=== PATIENT | female | born 1985 | race Caucasian/White ===

== ENCOUNTER 2025-06-03 04:07 | Inpatient (IN) | payer OTHER, SELFPAY ==
[2025-06-03] VITALS (45 sets, daily range): BP systolic 91–122; BP diastolic 65–94; PULSE 75–117; RESP 14–30; TEMP 36.4–36.9; O2SAT 92–100; BMI 33.3; BMI 34.3
--- NOTE | 2025-06-03 04:37 | CTR_ITS ---
PROCEDURE INFORMATION: Exam: CTA Abdomen and Pelvis With Contrast Exam date and time: 06/03/2025 5:53 AM Age: 39 years old Clinical indication: Other: Large volume bloody bms; Additional info: No pmhx, 4 large volume bloody bms here and worsening TECHNIQUE: Imaging protocol: Computed tomographic angiography of the abdomen and pelvis with contrast. Exam focused on the arteries. 3D rendering (Not supervised by radiologist): MIP and/or 3D reconstructed images were created by the technologist. Radiation optimization: All CT scans at this facility use at least one of these dose optimization techniques: automated exposure control; mA and/or kV adjustment per patient size (includes targeted exams where dose is matched to clinical indication); or iterative reconstruction. Contrast material: OMNI 350; Contrast volume: 100 ml; Contrast route: INTRAVENOUS (IV); COMPARISON: No relevant prior studies available. RADIATION DOSE METRICS: Total DLP (mGy-cm): 718.65 FINDINGS: Diaphragm: Small sliding-type hiatal hernia. Aorta: No aortic aneurysm. No aortic dissection. Celiac and mesenteric arteries: No occlusion or significant stenosis. Renal arteries: No occlusion or significant stenosis. Right iliac arteries: No occlusion or significant stenosis. Left iliac arteries: No occlusion or significant stenosis. Liver: The liver is enlarged, measuring 18.1 cm craniocaudal. Gallbladder and biliary ducts: Unremarkable. No calcified stones. No ductal dilation. Pancreas: Unremarkable. No mass. No ductal dilation. Spleen: Heterogeneous enhancement of the spleen is likely due to contrast timing. Spleen is normal in size. Adrenal glands: Unremarkable. No mass. Kidneys and ureters: Unremarkable. No solid mass. No hydronephrosis. Stomach and bowel: Moderate stool throughout the colon. No evidence of bowel obstruction. No active bleeding is evident within the gastrointestinal tract on this single phase of contrast. Appendix: No evidence of appendicitis. Intraperitoneal space: Unremarkable. No free air. No significant fluid collection. Lymph nodes: Unremarkable. No enlarged lymph nodes. Urinary bladder: Unremarkable. No mass. Reproductive: 3.3 cm left adnexal cyst. Bones/joints: No acute fracture. Soft tissues: Small fat containing umbilical hernia. CT/CT angio abdomen pelvis 16868 IMPRESSION: 1. No evidence of active bleeding within the gastrointestinal tract. A tagged red blood cell scan could be considered for further evaluation if warranted. 2. No acute findings in the abdomen/pelvis. 3. Moderate colonic stool can be seen with constipation. 4. Mild hepatomegaly. 5. 3.3 cm left adnexal cyst likely represents a dominant follicle.
[2025-06-03 04:47] LABS: Hematocrit 39.7 % (36-47); Hemoglobin 12.80 g/dL (11.27-16.99); Mean Corpuscular HGB Conc 32.2 g/dL (30-55); Mean Corpuscular Hemoglobin 27.4 pg (27-33); Mean Corpuscular Volume 85.0 fl (85-98); Nucleated Red Blood Cells % 0 %; Platelet Count 280 10^3/cmm (157-399); Red Blood Count 4.67 10^6/uL (3.85-5.65); White Blood Count 11.75 10^3/uL (3.29-11.43)
[2025-06-03 04:55] LABS: INR 0.89 (0.8-1.2); Partial Thromboplastin Time 28.6 SECONDS (23.9-36.7); Prothrombin Time 12.70 SECONDS (12.1-14.9)
--- NOTE | 2025-06-03 04:57 | W.ED.GIBLEED ---
Documented by User: Jalil Adams DO 06/04/25 02:48 HPI - GI Bleed General: Chief complaint: GI Bleed Stated complaint: Passing alot of blood BM Time Seen by Provider: 06/03/25 04:16 History of Present Illness: Patient is a 39-year-old female with past medical history of depression, GERD who presents to the ED with multiple episodes of large-volume diarrhea, reports 3 tonight, woke up abruptly with this, no seeming abdominal pain, rectal pain with this. She endorses a history of intermittent light amount of blood in the past but never like this. She has no history of IBD, no family history of this or autoimmune disease. She is not on blood thinners. No recent travel, no recent fevers or flulike symptoms. Does not drink alcohol regularly, no heavy ibuprofen usage. Had an episode of symptomatic gallstones 2 years ago and has not reoccurred since. She denies any hematuria or vaginal bleeding. No history of cirrhosis or PUD. Related Data Home Medications ?Medication ?Instructions ?Recorded ?Confirmed bupropion HCl 300 mg 24 hr tablet, 300 mg PO DAILY 06/03/25 06/03/25 extended release buspirone 5 mg tablet 5 mg PO TID PRN Anxiety 06/03/25 06/03/25 ixekizumab 80 mg/mL subcutaneous 80 mg SUBCUT .Q28D 06/03/25 06/03/25 auto-injector (Taltz Autoinjector) omeprazole 20 mg capsule,delayed 20 mg PO DAILY 06/03/25 06/03/25 release Allergies Allergy/AdvReac Type Severity Reaction Status Date / Time No Known Allergies Allergy Verified 06/03/25 04:19 Review of Systems General: Reports: 10 or more systems reviewed and unremarkable except in HPI and below GI: Reports: diarrhea and hematochezia Physical Exam Narrative: EXAM NARRATIVE: Patient overall well-appearing, afebrile, mildly tachycardic but normotensive, no acute distress. Abdomen mildly distended but soft, no reproducible tenderness, bowel sounds increased, no overlying skin changes, no CVA tenderness. Breathing comfortably on room air, saturating well, able to speak in full sentences without getting short of breath. Mild sinus tachycardia, normotensive, appears slightly pale, slightly delayed cap refill, 2+ pulses throughout. GCS 15, moving all 4 extremities symmetrically and spontaneously. Course Vital Signs: Vital signs: Vital Signs Temperature 97.5 F L 06/05/25 08:01 Pulse Rate 69 06/05/25 08:01 Respiratory Rate 22 H 06/05/25 08:01 Blood Pressure 114/69 06/05/25 08:01 Pulse Oximetry 96 06/05/25 08:01 Oxygen Delivery Me thod Room Air 06/04/25 18:04 MDM - GI Bleed Medical Decision Making -ddx: EHEC/other bacterial toxin, hemorrhoid, fissure, PUD, colon mass, dehydration, acute blood loss, IBD, coagulopathy - Patient with seemingly worsening large-volume bloody diarrhea, 2 episodes here, mildly pale and tachycardic, will get type and screen, prepared to give blood if needed, will start with fluids, Protonix, get CT angio upper abdomen to further elucidate for any acute intra-abdominal pathology, assess for coagulopathy and get other abdominal labs and reassess. - Patient had a few episodes of large-volume bloody diarrhea while in the ED, remained slightly tachycardic but with normal vitals, no changes in her mentation, patient was typed and screened, initial hemoglobin of 12, blood prepared if needed. At time of signout of care, we were awaiting CT angio of her abdomen pelvis for decision making on whether she would need an urgent versus emergent scope and potential ICU admission, signed out in stable condition to Dr. Randolph. Lab Data 06/05/25 03:37 06/05/25 03:37 Radiology Impressions Abdomen/Pelvis CTA 06/03/25 04:37 IMPRESSION: 1. No evidence of active bleeding within the gastrointestinal tract. A tagged red blood cell scan could be considered for further evaluation if warranted. 2. No acute findings in the abdomen/pelvis. 3. Moderate colonic stool can be seen with constipation. 4. Mild hepatomegaly. 5. 3.3 cm left adnexal cyst likely represents a dominant follicle. Laboratory Results WBC 13.93 10^3/uL (3.29-11.43) H 06/03/25 08:20 RBC 3.63 10^6/uL (3.85-5.65) L 06/03/25 08:20 Hgb 9.90 g/dL (11.27-16.99) L 06/03/25 08:20 Hct 31.3 % (36-47) L 06/03/25 08:20 MCV 86.2 fl (85-98) 06/03/25 08:20 MCH 27.3 pg (27-33) 06/03/25 08:20 MCHC 31.6 g/dL (30-55) 06/03/25 08:20 RDW 12.7 % (12.1-15.1) 06/03/25 08:20 Plt Count 231 10^3/cmm (157-399) 06/03/25 08:20 MPV 10.3 fL (7.4-10.4) 06/03/25 08:20 Neut % (Auto) 75.8 % 06/03/25 08:20 Lymph % (Auto) 16.9 % 06/03/25 08:20 Polk % (Auto) 5.1 % 06/03/25 08:20 Eos % (Auto) 1.2 % 06/03/25 08:20 Baso % (Auto) 0.5 % 06/03/25 08:20 Neut # (Auto) 10.55 10^3/uL (1.8-7.7) H 06/03/25 08:20 Lymph # (Auto) 2.4 10^3/uL (0.8-4.8) 06/03/25 08:20 Polk # (Auto) 0.7 10^3/uL (0.2-0.9) 06/03/25 08:20 Eos # (Auto) 0.2 10^3/uL (0.0-0.8) 06/03/25 08:20 Baso # (Auto) 0.1 10^3/uL (0.0-0.1) 06/03/25 08:20 Nucleated RBC % (auto) 0 % 06/03/25 08:20 Nucleated RBCs # 0.0 /100WBC 06/03/25 08:20 PT 12.70 SECONDS (12.1-14.9) 06/03/25 04:18 INR 0.89 (0.8-1.2) 06/03/25 04:18 APTT 28.6 SECONDS (23.9-36.7) 06/03/25 04:18 Sodium 137 mmol/L (136-145) 06/03/25 05:40 Potassium 4.0 mmol/L (3.5-5.1) 06/03/25 05:40 Chloride 105 mmol/L (98-107) 06/03/25 05:40 Carbon Dioxide 20 mmol/L (22-29) L 06/03/25 05:40 Anion Gap 16.0 (5-19) 06/03/25 05:40 BUN 10 mg/dL (6-20) 06/03/25 05:40 Creatinine 0.8 mg/dL (0.5-0.9) 06/03/25 05:40 GFR Calculation 79.4 mL/min (90-130) L 06/03/25 05:40 Glucose 109 mg/dL (65-115) 06/03/25 05:40 Calculated Osmolality 284 mOsm/kg (285-295) L 06/03/25 05:40 Lactic Acid 1.1 mmol/L (0.5-2.2) 06/03/25 04:18 Calcium 8.8 mg/dL (8.5-10.5) 06/03/25 05:40 Phosphorus 2.9 mg/dL (2.5-4.5) 06/03/25 04:18 Magnesium 2.1 mg/dL (1.7-2.3) 06/03/25 04:18 Total Bilirubin 0.3 mg/dL (0.15-1.2) 06/03/25 05:40 AST 16 U/L (0-32) 06/03/25 05:40 ALT 15 U/L (0-33) 06/03/25 05:40 Alkaline Phosphatase 67 U/L (35-105) 06/03/25 05:40 Troponin T Baseline < 6 ng/L (0-10) 06/03/25 04:18 Troponin T 60 Minute < 6.0 ng/L (0-10) 06/03/25 05:40 Delta Troponin T 0 ABS# (0-10) 06/03/25 05:40 C-React Prot High Sens 0.230 mg/dL (0.0-0.3) 06/03/25 04:18 Total Protein 6.4 g/dL (6.6-8.7) L 06/03/25 05:40 Albumin 4.0 g/dL (3.5-5.2) 06/03/25 05:40 Globulin 2.4 g/dL (1.3-4.6) 06/03/25 05:40 Lipase 38 U/L (13-60) 06/03/25 04:18 HCG, Qual Negative (Negative) 06/03/25 04:18 C. difficile (PCR) Negative (Negative) 06/03/25 04:31 Blood Type A Positive 06/03/25 04:18 Rho(D) Type Rh positive 06/03/25 04:18 Antibody Screen Negative 06/03/25 04:18 Crossmatch See Detail 06/03/25 04:18 XR interpretation done by ED provider, pending radiology final review ED provider radiology interpretation(s): No gross areas of extravasation on CT angio abdomen pelvis Discharge Plan Discharge Patient Disposition: Admitted As Inpatient Admit Provider: Eriberto Matt Clinical Impression: Lower GI bleed Condition: Stable Discharge Diet: Advance as tolerated Discharge Activity: Resume usual activity Sign Out Sign Out Data: Patient Sign Out occurred on 06/03/25 at 06:23. Patient's care was discussed, and care was transferred from Jalil Adams DO to Bart Randolph DO. Coding Level of Care Code ED Sheet Sorter for Chg Fwd Documented by User: Bart Randolph DO 06/05/25 09:55 HPI - GI Bleed General: Chief complaint: GI Bleed Stated complaint: Passing alot of blood BM Time Seen by Provider: 06/03/25 04:16 Related Data Home Medications ?Medication ?Instructions ?Recorded ?Confirmed bupropion HCl 300 mg 24 hr tablet, 300 mg PO DAILY 06/03/25 06/03/25 extended release buspirone 5 mg tablet 5 mg PO TID PRN Anxiety 06/03/25 06/03/25 ixekizumab 80 mg/mL subcutaneous 80 mg SUBCUT .Q28D 06/03/25 06/03/25 auto-injector (Taltz Autoinjector) omeprazole 20 mg capsule,delayed 20 mg PO DAILY 06/03/25 06/03/25 release Allergies Allergy/AdvReac Type Severity Reaction Status Date / Time No Known Allergies Allergy Verified 06/03/25 04:19 Course Vital Signs: Vital signs: Vital Signs Temperature 97.5 F L 06/05/25 08:01 Pulse Rate 69 06/05/25 08:01 Respiratory Rate 22 H 06/05/25 08:01 Blood Pressure 114/69 06/05/25 08:01 Pulse Oximetry 96 06/05/25 08:01 Oxygen Delivery Me thod Room Air 06/04/25 18:04 MDM - GI Bleed Medical Decision Making -ddx: EHEC/other bacterial toxin, hemorrhoid, fissure, PUD, colon mass, dehydration, acute blood loss, IBD, coagulopathy - Patient with seemingly worsening large-volume bloody diarrhea, 2 episodes here, mildly pale and tachycardic, will get type and screen, prepared to give blood if needed, will start with fluids, Protonix, get CT angio upper abdomen to further elucidate for any acute intra-abdominal pathology, assess for coagulopathy and get other abdominal labs and reassess. - Patient had a few episodes of large-volume bloody diarrhea while in the ED, remained slightly tachycardic but with normal vitals, no changes in her mentation, patient was typed and screened, initial hemoglobin of 12, blood prepared if needed. At time of signout of care, we were awaiting CT angio of her abdomen pelvis for decision making on whether she would need an urgent versus emergent scope and potential ICU admission, signed out in stable condition to Dr. Randolph. Care assumed at change of shift. Medical decision making Social determinants: None I reviewed the patient's medical record. I reviewed the patient's current home meds. Alternate historians: None Differential diagnosis: Infectious diarrhea, diverticulitis, lower GI bleed Lab Review: Labs reviewed as found in the chart. Initial CBC with a hemoglobin of 12.8 done at 4:18 AM at 8:20 AM I repeated her hemoglobin it was 9.9 to the point patient had had at least 2 more large bloody bowel movements. Chemistries unremarkable BUN not elevated no significant anion gap. C. difficile is negative liver functions normal. Imaging: CT abdomen does not show any acute abdominal findings no sign of source of bleed no infection no obstruction no masses no diverticulitis no perforation Assessment of risk Level of risk: High Hospitalization considerations: Hospitalized for acute lower GI bleed ongoing Reexamination: Repeat exam patient remains feeling weak she reports having several more large bloody bowel movements repeat hemoglobin shows significant drop Assessment and plan: Discussed with hospitalist and with general surgery will admit for acute lower GI bleed. Patient be kept n.p.o. Repeat hemoglobin shows a 3 point drop will need to serial hemoglobins. Will admit to ICU. Lab Data 06/05/25 03:37 06/05/25 03:37 Radiology Impressions Abdomen/Pelvis CTA 06/03/25 04:37 IMPRESSION: 1. No evidence of active bleeding within the gastrointestinal tract. A tagged red blood cell scan could be considered for further evaluation if warranted. 2. No acute findings in the abdomen/pelvis. 3. Moderate colonic stool can be seen with constipation. 4. Mild hepatomegaly. 5. 3.3 cm left adnexal cyst likely represents a dominant follicle. Laboratory Results WBC 13.93 10^3/uL (3.29-11.43) H 06/03/25 08:20 RBC 3.63 10^6/uL (3.85-5.65) L 06/03/25 08:20 Hgb 9.90 g/dL (11.27-16.99) L 06/03/25 08:20 Hct 31.3 % (36-47) L 06/03/25 08:20 MCV 86.2 fl (85-98) 06/03/25 08:20 MCH 27.3 pg (27-33) 06/03/25 08:20 MCHC 31.6 g/dL (30-55) 06/03/25 08:20 RDW 12.7 % (12.1-15.1) 06/03/25 08:20 Plt Count 231 10^3/cmm (157-399) 06/03/25 08:20 MPV 10.3 fL (7.4-10.4) 06/03/25 08:20 Neut % (Auto) 75.8 % 06/03/25 08:20 Lymph % (Auto) 16.9 % 06/03/25 08:20 Polk % (Auto) 5.1 % 06/03/25 08:20 Eos % (Auto) 1.2 % 06/03/25 08:20 Baso % (Auto) 0.5 % 06/03/25 08:20 Neut # (Auto) 10.55 10^3/uL (1.8-7.7) H 06/03/25 08:20 Lymph # (Auto) 2.4 10^3/uL (0.8-4.8) 06/03/25 08:20 Polk # (Auto) 0.7 10^3/uL (0.2-0.9) 06/03/25 08:20 Eos # (Auto) 0.2 10^3/uL (0.0-0.8) 06/03/25 08:20 Baso # (Auto) 0.1 10^3/uL (0.0-0.1) 06/03/25 08:20 Nucleated RBC % (auto) 0 % 06/03/25 08:20 Nucleated RBCs # 0.0 /100WBC 06/03/25 08:20 PT 12.70 SECONDS (12.1-14.9) 06/03/25 04:18 INR 0.89 (0.8-1.2) 06/03/25 04:18 APTT 28.6 SECONDS (23.9-36.7) 06/03/25 04:18 Sodium 137 mmol/L (136-145) 06/03/25 05:40 Potassium 4.0 mmol/L (3.5-5.1) 06/03/25 05:40 Chloride 105 mmol/L (98-107) 06/03/25 05:40 Carbon Dioxide 20 mmol/L (22-29) L 06/03/25 05:40 Anion Gap 16.0 (5-19) 06/03/25 05:40 BUN 10 mg/dL (6-20) 06/03/25 05:40 Creatinine 0.8 mg/dL (0.5-0.9) 06/03/25 05:40 GFR Calculation 79.4 mL/min (90-130) L 06/03/25 05:40 Glucose 109 mg/dL (65-115) 06/03/25 05:40 Calculated Osmolality 284 mOsm/kg (285-295) L 06/03/25 05:40 Lactic Acid 1.1 mmol/L (0.5-2.2) 06/03/25 04:18 Calcium 8.8 mg/dL (8.5-10.5) 06/03/25 05:40 Phosphorus 2.9 mg/dL (2.5-4.5) 06/03/25 04:18 Magnesium 2.1 mg/dL (1.7-2.3) 06/03/25 04:18 Total Bilirubin 0.3 mg/dL (0.15-1.2) 06/03/25 05:40 AST 16 U/L (0-32) 06/03/25 05:40 ALT 15 U/L (0-33) 06/03/25 05:40 Alkaline Phosphatase 67 U/L (35-105) 06/03/25 05:40 Troponin T Baseline < 6 ng/L (0-10) 06/03/25 04:18 Troponin T 60 Minute < 6.0 ng/L (0-10) 06/03/25 05:40 Delta Troponin T 0 ABS# (0-10) 06/03/25 05:40 C-React Prot High Sens 0.230 mg/dL (0.0-0.3) 06/03/25 04:18 Total Protein 6.4 g/dL (6.6-8.7) L 06/03/25 05:40 Albumin 4.0 g/dL (3.5-5.2) 06/03/25 05:40 Globulin 2.4 g/dL (1.3-4.6) 06/03/25 05:40 Lipase 38 U/L (13-60) 06/03/25 04:18 HCG, Qual Negative (Negative) 06/03/25 04:18 C. difficile (PCR) Negative (Negative) 06/03/25 04:31 Blood Type A Positive 06/03/25 04:18 Rho(D) Type Rh positive 06/03/25 04:18 Antibody Screen Negative 06/03/25 04:18 Crossmatch See Detail 06/03/25 04:18 Discharge Plan Discharge Patient Disposition: Admitted As Inpatient Admit Provider: Eriberto Matt Clinical Impression: Lower GI bleed Condition: Stable Discharge Diet: Advance as tolerated Discharge Activity: Resume usual activity Sign Out Sign Out Data: Patient Sign Out occurred on 06/03/25 at 06:23. Patient's care was discussed, and care was transferred from Jalil Adams DO to Bart Randolph DO. Coding Level of Care Code ED Sheet Sorter for King Weber
[2025-06-03 04:59] LABS: Troponin(5th) Baseline < 6 ng/L (0-10)
--- NOTE | 2025-06-03 05:01 | ECG_ITS ---
[facility] Test Date: 2025-06-03 Pat Name: Joanna Banks Department: Room: Gender: Female Vp Platforms: : 1985 Requested By: Jalil Adams Order Number: [id number] Jaky MD: PETER LUDWIG Measurements Intervals [place] Rate: 88 P: 76 TN: 159 QRS: 72 QRSD: 86 T: 75 QT: 325 QTc: 394 Interpretive Statements SINUS RHYTHM No previous ECG available for comparison Electronically Signed On 06-09-2025 20:31:51 [employer] OPERATOR by PETER LUDWIG [email or web address]
[2025-06-03 05:02] LABS: CRP High Sensitivity Cardiac 0.230 mg/dL (0.0-0.3); Lactic Sepsis W/Reflex 1.1 mmol/L (0.5-2.2); Lipase 38 U/L (13-60); Magnesium 2.1 mg/dL (1.7-2.3)
[2025-06-03 05:14] LABS: HCG, Serum Qual Negative (Negative)
[2025-06-03] MEDS: pantoprazole 40 mg SDV IVP ×3 (05:47→22:46)
[2025-06-03 06:07] LABS: C.Diff PCR (Lab) NEGATIVE (Negative)
[2025-06-03] MEDS: iohexol 350 mg/mL 500 mL Btl (per mL) IV (06:07)
[2025-06-03] MEDS: pantoprazole 40 mg SDV 80 MG IVP (07:35)
[2025-06-03 07:53] LABS: Alanine Aminotransferase 15 U/L (0-33); Albumin Level 4.0 g/dL (3.5-5.2); Alkaline Phosphatase 67 U/L (35-105); Anion Gap 16.0 (5-19); Aspartate Amino Transferase 16 U/L (0-32); Blood Urea Nitrogen 10 mg/dL (6-20); Calcium 8.8 mg/dL (8.5-10.5); Carbon Dioxide 20 mmol/L (22-29); Chloride 105 mmol/L (98-107); Globulin 2.4 g/dL (1.3-4.6); Glucose 109 mg/dL (65-115); Osmolality Calculated 284 mOsm/kg (285-295); Potassium 4.0 mmol/L (3.5-5.1); Sodium 137 mmol/L (136-145); Total Protein 6.4 g/dL (6.6-8.7)
--- NOTE | 2025-06-03 08:03 | PC.PHAR ---
Pt wants to take her morning meds.
[2025-06-03 08:23] LABS: Hematocrit 31.3 % (36-47); Hemoglobin 9.90 g/dL (11.27-16.99); Mean Corpuscular HGB Conc 31.6 g/dL (30-55); Mean Corpuscular Hemoglobin 27.3 pg (27-33); Mean Corpuscular Volume 86.2 fl (85-98); Nucleated Red Blood Cells % 0 %; Platelet Count 231 10^3/cmm (157-399); Red Blood Count 3.63 10^6/uL (3.85-5.65); White Blood Count 13.93 10^3/uL (3.29-11.43)
[2025-06-03] MEDS: D5-NS 0.45% + KCL 20 mEq 20 MEQ/1,000 ML BAG 100 MEQ IV (10:40)
--- NOTE | 2025-06-03 11:01 | PM.CONSULT ---
Providers/Reason For Consult Consulting Physician/Specialty*: Dr. Baptiste general surgery Reason for Consult*: Hematochezia Attending Physician: Ericka Lorenzana MD Primary Care Provider: REA Madrigal History of Present Illness History of Present Illness Joanna Banks is a 39 year old female whom surgery was consulted for hematochezia. No family history of colon cancer or inflammatory bowel disease. No weight loss. No changes in bowel habits. Medications/Allergies Home Medications ?Medication ?Instructions ?Recorded ?Confirmed ?Last Taken ?Type bupropion HCl 300 mg 24 hr tablet, 300 mg PO DAILY 06/03/25 06/03/25 06/02/25 History extended release buspirone 5 mg tablet 5 mg PO TID PRN Anxiety 06/03/25 06/03/25 Unknown History ixekizumab 80 mg/mL subcutaneous 80 mg SUBCUT .Q28D 06/03/25 06/03/25 05/06/25 History auto-injector (Taltz Autoinjector) omeprazole 20 mg capsule,delayed 20 mg PO DAILY 06/03/25 06/03/25 06/02/25 History release Allergies Allergy/AdvReac Type Severity Reaction Status Date / Time No Known Allergies Allergy Verified 06/03/25 04:19 Current Medications Generic Name Dose Route Start Last Admin Trade Name Freq PRN Reason Stop Dose Admin Potassium Chloride/Dextrose/Sod Cl 20 meq in 1,000 mls @ 100 mls/hr 06/03/25 10:23 06/03/25 10:40 D5-Ns 0.45% + Kcl 20 Meq IV 100 mls/hr .Q10H FRANCA Administration PFSH Acute Female Reproductive History: Date of last menstrual period: 05/15/25 Vitals/I&O/Wt Last Vital Signs Temp 97.5 F L 06/03/25 04:12 Pulse 117 H 06/03/25 07:30 Resp 15 06/03/25 06:54 BP 110/71 06/03/25 06:54 Pulse Ox 100 06/03/25 07:30 O2 Del Method Room Air 06/03/25 10:32 06/02/25 06/03/25 06/03/25 22:59 06:59 14:59 Intake Total 1000 / 1000 Balance 1000 / 1000 Weight last 48 hrs Weight 206 lb 4 oz Weight 200 lb Physical Exam Narrative: Chest: Unlabored breathing room air. No lymphadenopathy. Heart: Regular rate and rhythm. Abdomen: Soft, nontender, nondistended. No masses or lymphadenopathy. Data 06/05/25 03:37 06/05/25 03:37 A&P Assessment and plan 1. Lower GI bleed: Plan: 39-year-old female who presented with hematochezia. Patient agrees to proceed with diagnostic colonoscopy. Prep ordered. PDMP PDMP Reviewed: Not Reviewed Coding Level of Care Code 43940 Diagnoses Lower GI bleed K92.2
[2025-06-03] MEDS: magnesium citrate Btl 296 mL PO ×2 (12:01→21:30)
[2025-06-03 12:13] LABS: Hematocrit 30.9 % (36-47); Hemoglobin 9.70 g/dL (11.27-16.99); Mean Corpuscular HGB Conc 31.4 g/dL (30-55); Mean Corpuscular Hemoglobin 27.5 pg (27-33); Mean Corpuscular Volume 87.5 fl (85-98); Nucleated Red Blood Cells % 0 %; Platelet Count 251 10^3/cmm (157-399); Red Blood Count 3.53 10^6/uL (3.85-5.65); White Blood Count 10.35 10^3/uL (3.29-11.43)
[2025-06-03 12:35] LABS: Magnesium 1.9 mg/dL (1.7-2.3)
[2025-06-03] MEDS: alum-mag-hydroxide-sime 30 mL UDC 15 ML PO ×2 (13:52→20:59)
[2025-06-03] MEDS: metroNIDAZOLE IV 500 MG/100 ML PREMIX 100 MG IV ×2 (14:18→21:40)
[2025-06-03] MEDS: ondansetron 2 mg/ML SDV 2 mL 4 MG IVP ×2 (14:21→22:47)
--- NOTE | 2025-06-03 17:48 | PM.HP ---
Providers/Chief Complaint Admitting Physician: Ericka Lorenzana MD Primary Care Provider: REA Madrigal Chief Complaint: Passing alot of blood BM History of Present Illness As per the previous retrospective note and the patient: Joanna Banks is a 39 year old female with past medical history of depression, GERD presented to ER with large volume bright red blood per rectum from 1 day. The patient did not report any previous history of such episodes. There was no melena and only fresh blood. No abdominal pain, nausea or vomiting or any easy bruising or any other sitophobia source of bleeding. The patient does not drink alcohol. No history of any fevers chills or weight loss. No history of cancers. No previous history of IBD in the family or diagnosed in her situation and autoimmune disorders. She did not report any NSAIDs or steroids abuse or use. No other substance use disorder. The patient is non-smoker. Rest of the review of system unremarkable Review of Systems General: Reports: 10 or more systems reviewed and unremarkable except in HPI and below Medications/Allergies Home Medications ?Medication ?Instructions ?Recorded ?Confirmed ?Last Taken ?Type bupropion HCl 300 mg 24 hr tablet, 300 mg PO DAILY 06/03/25 06/03/25 06/02/25 History extended release buspirone 5 mg tablet 5 mg PO TID PRN Anxiety 06/03/25 06/03/25 Unknown History ixekizumab 80 mg/mL subcutaneous 80 mg SUBCUT .Q28D 06/03/25 06/03/25 05/06/25 History auto-injector (Taltz Autoinjector) omeprazole 20 mg capsule,delayed 20 mg PO DAILY 06/03/25 06/03/25 06/02/25 History release Allergies Allergy/AdvReac Type Severity Reaction Status Date / Time No Known Allergies Allergy Verified 06/03/25 04:19 PFSH Acute Female Reproductive History: Date of last menstrual period: 05/15/25 Vitals/I&O/Wt Last Vital Signs Temp 98.0 F 06/03/25 11:45 Pulse 95 06/03/25 12:00 Resp 18 06/03/25 12:00 BP 105/78 06/03/25 11:45 Pulse Ox 97 06/03/25 12:00 O2 Del Method Room Air 06/03/25 11:45 06/03/25 06/03/25 06/03/25 06:59 14:59 22:59 Intake Total 1000 / 1000 Balance 1000 / 1000 Weight last 48 hrs Weight 93.553 kg Weight 90.718 kg Physical Exam Narrative: General: Alert and oriented, lying comfortably without any distress HEENT: Normocephalic, atraumatic, grossly unremarkable exam Cardio: normal rate rhythm, normal S1-S2 without any murmurs, rubs, or gallops and JVD normal Respiratory: normal vascular breathing on auscultation without any wheezes, stridor, rhonchi GI: Abdomen soft, nontender, nondistended, normoactive bowel sounds present all 4 quadrants, Neuro: intact cranial nerves motor and sensory and cerebellar/coordination function without any focal neurological deficit Behavior: Appropriate and cooperative Extremities: Adequate palpable pulses, no edema or cyanosis observed Skin: grossly unremarkable exam Data 06/03/25 12:01 06/03/25 05:40 Micro: Microbiology 06/03/25 12:01 Blood Culture - Preliminary Blood SPECIMEN COLLECTED 06/03/25 11:54 Blood Culture - Preliminary Blood SPECIMEN COLLECTED A&P Assessment and plan 1. Lower GI bleed: Patient underwent CT abdomen pelvis and did not show any evidence of active bleeding, for detailed report refer to the imaging studies Surgery on board and tomorrow for colonoscopy, today for clear fluids and n.p.o. after midnight, Maintain 2 IV over cannula CBC every 8 hourly Monitoring daily labs, electrolytes and correction accordingly PPI IV twice daily Adequate hydration Hemoglobin to maintain above 7 Avoid any NSAIDs or blood thinners There might be suspected diverticulitis since the patient reported having constipation and history of hemorrhoids. Therefore considering possible diverticulitis to start on metronidazole and ciprofloxacin Maintain MAP over 65 Monitor vitals 2. Depression: Reconcile home medication and to continue on bupropion 300 mg daily and buspirone 5 mg 3 times daily as needed for anxiety Continue to monitor 3. GERD (gastroesophageal reflux disease): PPI twice daily Maalox Carafate Plan: Patient kept in ICU for monitoring of hemoglobin and hemodynamics considering patient has a risk of further deterioration if massive bleeding episode happens VTE: SCDs and early ambulation PDMP PDMP Reviewed: Not Reviewed Attestations Medical Necessity Statement*: Patient will stay more than 2 midnights for the management of lower GI bleed requiring colonoscopy and further diagnostic workup and stabilization for safe disposition Time Spent in Patient Care: 16 - 35 minutes (>than 50% of time spent in counselling and/or direct pt care on unit). Critical Care Time: The high probability of a clinically significant, sudden or life threatening deterioration, as referenced in this documentation, required my full and direct attention, intervention and personal management. The critical care time shown is in addition to time spent performing any reported separately billable procedures and includes the following: [x] Data and vital sign review and interpretation [x] Patient assessment, examination and intervention [x] Medication orders and management [x] Patient/Family updates as able [x] Care Coordination and Documentation. Critical Care Time (min): 35 Other Attestations: Patient condition has been discussed at length with the patient/family, I have independently reviewed the chart labs imaging/diagnostics/EKG. the goals of care and code status with the patient/family/NOK/legal rental sales representative, and documented accordingly. I have reconciled the medications after confirmation/comorbidities/current clinical condition. The management has been done according to the current clinical condition with respect to patient goals of care and based on recommendations/guidelines. The patient/family has been informed about the current condition and further plan of care. Agreed with the plan of care and understood without any language barrier. Every effort was made to ensure accuracy of administrative assistant receptionist. Any obvious errors or omissions should be clarified with the author of the document. Coding Level of Care Code Critical Care >/= 30 minutes Diagnoses Lower GI bleed K92.2 Depression F32.A GERD (gastroesophageal reflux disease) K21.9
[2025-06-03 19:18] LABS: Hematocrit 30.2 % (36-47); Hemoglobin 9.60 g/dL (11.27-16.99); Mean Corpuscular HGB Conc 31.8 g/dL (30-55); Mean Corpuscular Hemoglobin 27.4 pg (27-33); Mean Corpuscular Volume 86.3 fl (85-98); Nucleated Red Blood Cells % 0 %; Platelet Count 232 10^3/cmm (157-399); Red Blood Count 3.50 10^6/uL (3.85-5.65); White Blood Count 11.24 10^3/uL (3.29-11.43)
[2025-06-04] VITALS (30 sets, daily range): BP systolic 93–127; BP diastolic 45–96; PULSE 73–92; RESP 13–32; TEMP 36.6–37.1; O2SAT 92–100
[2025-06-04] MEDS: ondansetron 2 mg/ML SDV 2 mL 4 MG IVP (04:02)
[2025-06-04 04:19] LABS: Alanine Aminotransferase 13 U/L (0-33); Albumin Level 3.7 g/dL (3.5-5.2); Alkaline Phosphatase 59 U/L (35-105); Anion Gap 13.6 (5-19); Aspartate Amino Transferase 15 U/L (0-32); Blood Urea Nitrogen 4 mg/dL (6-20); Calcium 8.6 mg/dL (8.5-10.5); Carbon Dioxide 23 mmol/L (22-29); Chloride 104 mmol/L (98-107); Globulin 2.0 g/dL (1.3-4.6); Glucose 113 mg/dL (65-115); Osmolality Calculated 282 mOsm/kg (285-295); Potassium 3.6 mmol/L (3.5-5.1); Sodium 137 mmol/L (136-145); Total Protein 5.7 g/dL (6.6-8.7)
[2025-06-04] MEDS: alum-mag-hydroxide-sime 30 mL UDC 15 ML PO ×3 (05:13→21:59)
[2025-06-04] MEDS: metroNIDAZOLE IV 500 MG/100 ML PREMIX 100 MG IV ×2 (06:20→13:56)
--- NOTE | 2025-06-04 06:49 | ANES.PREANE2 ---
Pre-Anesthetic Assessment Height/Weight: Height 5 ft 5 in Weight 207 lb 3.752 oz Temp Pulse Resp BP Pulse Ox O2 Del Method 98.4 F 75 23 H 107/61 95 Room Air 06/04/25 00:45 06/04/25 06:00 06/04/25 05:00 06/04/25 06:00 06/04/25 06:00 06/03/25 17:15 Preop Diagnosis: GI bleed Operation Date: 06/04/25 07:00 Proposed Procedures p Colonoscopy(Not Applicable) - Enrrique Baptiste MD Was Beta Daniele taken within 24 hours: N/A Was Clonidine taken within 24 hours: N/A Social Tobacco and No alcohol Exam alert, oriented x 3, clear to auscultation bilaterally and regular rate & rhythm Airway Submandibular: within normal limits Cervical ROM: within normal limits Mallampati: Class II Dentition: full Anesthetic Plan ASA status: 3 Anesthesia: MAC Other: Patient initially admitted 06/03/2025 with concerns of active lower GI bleed No prior issues with anesthesia Completed bowel prep Labs reviewed from last night, hemoglobin 9.6 Plan for MAC anesthesia Medications/Allergies Home Medications ?Medication ?Instructions ?Recorded ?Confirmed ?Last Taken ?Type bupropion HCl 300 mg 24 hr tablet, 300 mg PO DAILY 06/03/25 06/03/25 06/02/25 History extended release buspirone 5 mg tablet 5 mg PO TID PRN Anxiety 06/03/25 06/03/25 Unknown History ixekizumab 80 mg/mL subcutaneous 80 mg SUBCUT .Q28D 06/03/25 06/03/25 05/06/25 History auto-injector (Taltz Autoinjector) omeprazole 20 mg capsule,delayed 20 mg PO DAILY 06/03/25 06/03/25 06/02/25 History release Allergies Allergy/AdvReac Type Severity Reaction Status Date / Time No Known Allergies Allergy Verified 06/03/25 04:19 Current Medications Generic Name Dose Route Start Last Admin Trade Name Freq PRN Reason Stop Dose Admin Acetaminophen 650 mg 06/03/25 11:33 06/03/25 21:33 Acetaminophen 325 Mg Tablet PO 650 mg Q6H PRN Administration MILD PAIN Al Hydrox/Mg Hydrox/Simethicone 15 ml 06/03/25 13:45 06/04/25 05:13 Lsvj-Ryo-Qmwgzxbuu-Sadi 30 Ml Udc PO 15 ml Q8H FRANCA Administration Bupropion HCl 300 mg 06/04/25 05:00 06/04/25 04:01 Bupropion Xl (24 Hr) 300 Mg Tablet PO 300 mg DAILY FRANCA Administration Metronidazole 500 mg in 100 mls @ 100 mls/hr 06/03/25 14:15 06/04/25 06:20 Flagyl Iv IV 100 mls/hr Q8H FRANCA Administration Protocol Ciprofloxacin/Dextrose 400 mg in 200 mls @ 200 mls/hr 06/03/25 14:15 06/04/25 04:01 Cipro IV Infused Q12H FRANCA Infusion Protocol Lactated Ringer's 1,000 mls @ 150 mls/hr 06/03/25 19:30 06/04/25 05:14 Lactated Ringers IV 150 mls/hr .Q6H40M FRANCA Administration Ondansetron HCl 4 mg 06/03/25 11:33 06/04/25 04:02 Ondansetron 2 Mg/Ml Sdv 2 Ml IVP 4 mg Q6H PRN Administration NAUSEA AND VOMITING Pantoprazole Sodium 40 mg 06/03/25 11:45 06/03/25 22:46 Pantoprazole 40 Mg Sdv IVP 40 mg Q12H FRANCA Administration Sucralfate 1 gm 06/03/25 13:45 06/04/25 05:13 Sucralfate 1 Gm Tablet PO 1 gm Q4H FRANCA Administration PFSH Anesthesia Female Reproductive History Date of last menstrual period: 05/15/25 Data Anesthesia 06/03/25 19:08 06/04/25 03:49 Short CBC 06/03/25 06/03/25 06/03/25 Range/Units 04:18 08:20 12:01 WBC 11.75 H 13.93 H 10.35 (3.29-11.43) 10^3/uL Hgb 12.80 9.90 L 9.70 L (11.27-16.99) g/dL Hct 39.7 31.3 L 30.9 L (36-47) % MCV 85.0 86.2 87.5 (85-98) fl Plt Count 280 231 251 (157-399) 10^3/cmm Neut % (Auto) 50.0 75.8 64.1 % Neut # (Auto) 5.87 10.55 H 6.63 (1.8-7.7) 10^3/uL 06/03/25 Range/Units 19:08 WBC 11.24 (3.29-11.43) 10^3/uL Hgb 9.60 L (11.27-16.99) g/dL Hct 30.2 L (36-47) % MCV 86.3 (85-98) fl Plt Count 232 (157-399) 10^3/cmm Neut % (Auto) 60.7 % Neut # (Auto) 6.81 (1.8-7.7) 10^3/uL BMP 06/03/25 06/04/25 05:40 03:49 Sodium 137 137 Potassium 4.0 3.6 Chloride 105 104 Carbon Dioxide 20 L 23 BUN 10 4 L Creatinine 0.8 0.8 Glucose 109 113 Calcium 8.8 8.6 Cardiac Enzymes 06/03/25 06/03/25 Range/Units 04:18 05:40 Troponin T Baseline < 6 (0-10) ng/L Delta Troponin T 0 (0-10) ABS# Liver Function 06/03/25 06/04/25 Range/Units 05:40 03:49 Total Bilirubin 0.3 0.3 (0.15-1.2) mg/dL AST 16 15 (0-32) U/L ALT 15 13 (0-33) U/L Alkaline Phosphatase 67 59 (35-105) U/L Albumin 4.0 3.7 (3.5-5.2) g/dL Blood Bank 06/03/25 04:18 Blood Type A Positive Rho(D) Type Rh positive Antibody Screen Negative Coags 06/03/25 04:18 PT 12.70 INR 0.89 APTT 28.6 C-React Prot High Sens 0.230 Microbiology 06/03/25 12:01 Blood Culture - Preliminary Blood SPECIMEN COLLECTED 06/03/25 11:54 Blood Culture - Preliminary Blood SPECIMEN COLLECTED
--- NOTE | 2025-06-04 07:05 | P.PN_ITS ---
Subjective 2 Subjective: NAEON Vitals/I&O/Wt Last Vital Signs Temp 98.4 F 06/04/25 00:45 Pulse 75 06/04/25 06:00 Resp 23 H 06/04/25 05:00 BP 107/61 06/04/25 06:00 Pulse Ox 95 06/04/25 06:00 O2 Del Method Room Air 06/03/25 17:15 06/03/25 06/04/25 06/04/25 22:59 06:59 14:59 Intake Total 1540 / 1540 1540 / 3080 Balance 1540 / 1540 1540 / 3080 Weight last 48 hrs Weight 207 lb 3.752 oz Weight 207 lb 3.752 oz Weight 206 lb 4 oz Weight 200 lb Physical Exam 2 Narrative: rrr unlabored breathing ra abdomen soft, nt, nd Data 06/03/25 19:08 06/04/25 03:49 Micro: Microbiology 06/03/25 12:01 Blood Culture - Preliminary Blood SPECIMEN COLLECTED 06/03/25 11:54 Blood Culture - Preliminary Blood SPECIMEN COLLECTED A&P Assessment and plan 1. Lower GI bleed: Plan: 39yo female with hematochezia. Discussed risks and benefits and patient agrees to proceed with diagnostic colonoscopy only. She understands the risks include aspiration pneumonia, iatrogenic perforation, and missing findings and decides to proceed. No strong indication for EGD therefore will defer. PDMP PDMP Reviewed: Not Reviewed Attestations 2 Medical Necessity Statement*: NA Coding Level of Care Code 47676 Diagnoses Lower GI bleed K92.2
--- NOTE | 2025-06-04 07:45 | ANE.PACU2 ---
Inpatient post-anesthesia follow up: Airway intact: Yes Vital signs: Temperature 97.5 F Pulse Rate 69 Respiratory Rate 22 Blood Pressure 114/69 Pulse Oximetry 96 Oxygen Delivery Me thod Room Air Oxygen Flow Rate Fraction of Inspir ed Oxygen Hydration adequate: Yes Nausea and vomiting: No Pain level: 1 Mental status: Baseline
[2025-06-04] MEDS: pantoprazole 40 mg SDV IVP (11:11)
[2025-06-04] MEDS: IXEKIZUMAB 80 MG/ML SUBCUT (13:53)
[2025-06-04] MEDS: AUTO INJECTOR SUBCUT (13:53)
--- NOTE | 2025-06-04 19:45 | P.PN_ITS ---
Subjective 2 Subjective: Patient seen in the morning, status post colonoscopy and found to have rectal mass Patient has been discussed about the diagnosis, and further options. Patient preferred to be transferred to [facility] due to her insurance Signed nurse has been informed to send the patient investigations to [facility] on board, initially beds were not available and later on were available after 5 PM. Awaiting hospitalist call for further patient transfer after acceptance Vitals/I&O/Wt Last Vital Signs Temp 98.4 F 06/04/25 00:45 Pulse 88 06/04/25 18:04 Resp 17 06/04/25 18:04 BP 127/67 06/04/25 18:04 Pulse Ox 99 06/04/25 18:04 O2 Del Method Room Air 06/04/25 18:04 06/04/25 06/04/25 06/04/25 06:59 14:59 22:59 Intake Total 1540 / 3080 1340 / 1340 120 / 1460 Balance 1540 / 3080 1340 / 1340 120 / 1460 Weight last 48 hrs Weight 94 kg Weight 94 kg Weight 93.553 kg Weight 90.718 kg Physical Exam 2 Narrative: General: Alert and oriented, lying comfortably without any distress HEENT: Normocephalic, atraumatic, grossly unremarkable exam Cardio: normal rate rhythm, normal S1-S2 without any murmurs, rubs, or gallops and JVD normal Respiratory: normal vascular breathing on auscultation without any wheezes, stridor, rhonchi GI: Abdomen soft, nontender, nondistended, normoactive bowel sounds present all 4 quadrants, Neuro: intact cranial nerves motor and sensory and cerebellar/coordination function without any focal neurological deficit Behavior: Appropriate and cooperative Extremities: Adequate palpable pulses, no edema or cyanosis observed Skin: grossly unremarkable exam Data 06/03/25 19:08 06/04/25 03:49 Micro: Microbiology 06/03/25 12:01 Blood Culture - Preliminary Blood NEGATIVE TO DATE 06/03/25 11:54 Blood Culture - Preliminary Blood NEGATIVE TO DATE A&P Assessment and plan 1. Lower GI bleed: Patient underwent CT abdomen pelvis and did not show any evidence of active bleeding, for detailed report refer to the imaging studies Surgery on board and status post colonoscopy that showed rectal mass that is a likely cause of her fresh bleeding per rectum Maintain 2 IV over cannula Continue to monitor CBC, I did not see today's CBC, CBC stat and to monitor Monitoring daily labs, electrolytes and correction accordingly PPI IV daily, there is no indication to give her IV twice daily Adequate hydration Hemoglobin to maintain above 7 Avoid any NSAIDs or blood thinners Discontinue antibiotics since there is no indication to continue Maintain MAP over 65 Monitor vitals Awaiting call from [facility] transfer center and hospitalist for discussing patient's status and possible transfer 2. Depression, unspecified depression type: Reconcile home medication and to continue on bupropion 300 mg daily and buspirone 5 mg 3 times daily as needed for anxiety Continue to monitor 3. Gastroesophageal reflux disease without esophagitis: PPI twice daily Maalox Carafate Plan: Patient kept in ICU for monitoring of hemoglobin and hemodynamics considering patient has a risk of further deterioration if massive bleeding episode happens VTE: SCDs and early ambulation PDMP PDMP Reviewed: Not Reviewed Attestations 2 Medical Necessity Statement*: Patient will stay overnight for further monitoring of any fresh bleeding episodes and CBC secondary to her large rectal mass and also initiated transfer to [facility] from [facility] awaiting [facility] hospitalist callback Time Spent in Patient Care: Greater than 35 minutes (>than 50% of time spent in counselling and/or direct pt care on unit) . Critical Care Time: The high probability of a clinically significant, sudden or life threatening deterioration, as referenced in this documentation, required my full and direct attention, intervention and personal management. The critical care time shown is in addition to time spent performing any reported separately billable procedures and includes the following: [x] Data and vital sign review and interpretation [x ] Patient assessment, examination and intervention [x] Medication orders and management [x] Patient/Family updates as able [x] Care Coordination and Documentation. Critical Care Time (min): 35 Other Attestations: Patient condition has been discussed at length with the patient/family, I have independently reviewed the chart labs imaging/diagnostics/EKG. the goals of care and code status with the patient/family/NOK/legal branch sales and service representative, and documented accordingly. I have reconciled the medications after confirmation/comorbidities/current clinical condition. The management has been done according to the current clinical condition with respect to patient goals of care and based on recommendations/guidelines. The patient/family has been informed about the current condition and further plan of care. Agreed with the plan of care and understood without any language barrier. Every effort was made to ensure accuracy of hand hardener. Any obvious errors or omissions should be clarified with the author of the document. Coding Level of Care Code Critical Care >/= 30 minutes Diagnoses Lower GI bleed K92.2 Depression, unspecified depression type F32.A Depression Type: unspecified Gastroesophageal reflux disease without esophagitis K21.9 Esophagitis presence: without esophagitis
--- NOTE | 2025-06-04 20:09 | PM.TDS ---
Transfer Summary Providers Date of Admission: 06/03/25 09:21 Date of Discharge/Transfer: 06/04/25 Attending Provider at Admission: Eriberto Matt Attending Provider at Transfer: Ericka Lorenzana MD Primary Care Provider: REA Madrigal Transfer Plans: Anticipated date of transfer: 06/04/25. Diagnoses at Discharge Discharge Diagnosis 1. Lower GI bleed: 2. Depression, unspecified depression type: 3. Gastroesophageal reflux disease without esophagitis: Reason for Visit Reason for Visit Passing alot of blood BM Brief History: As per the previous retrospective note and the patient: Joanna Banks is a 39 year old female with past medical history of depression, GERD presented to ER with large volume bright red blood per rectum from 1 day. The patient did not report any previous history of such episodes. There was no melena and only fresh blood. No abdominal pain, nausea or vomiting or any easy bruising or any other sitophobia source of bleeding. The patient does not drink alcohol. No history of any fevers chills or weight loss. No history of cancers. No previous history of IBD in the family or diagnosed in her situation and autoimmune disorders. She did not report any NSAIDs or steroids abuse or use. No other substance use disorder. The patient is non-smoker. Rest of the review of system unremarkable Hospital Course Hospital Course During patient hospital stay, she underwent colonoscopy and found to have a rectal mass that was the main cause of her bleeding. Her hemoglobin and vitals more or less remained stable. Labs and diagnostics were reviewed. The patient was informed about her diagnosis and further plan of care discussed. Patient was provided option to either if she can be transferred to a different hospital and can be taken care with higher level of subspecialties available, and further if she is stable the other option is that she can be discharged and follow-up with the surgeons here and to give her appointment as outpatient with the hematology and oncology. The patient preferred and in my opinion it was also in the best interest of the patient to transfer her to a facility where she can have hematology and oncology at the same time along with gastroenterology or colorectal surgery to see and deal with the mass and to establish continuity of care afterwards. The patient preferred [facility]. It was also anticipated since there is a rectal mass and she had an episode of massive bleeding. If the mass eroded into vessel he may need IR or gastroenterology urgently on board and considering the limitation of our hospital subspecialties, the transfer is reasonable and initiated for optimum care of the patient. Patient condition has been discussed at length with the patient/family, I have independently reviewed the chart labs imaging/diagnostics/EKG. the goals of care and code status with the patient/family/NOK/legal customer operations representative, and documented accordingly. I have reconciled the medications after confirmation/comorbidities/current clinical condition. The management has been done according to the current clinical condition with respect to patient goals of care and based on recommendations/guidelines. The patient/family has been informed about the current condition and further plan of care. Agreed with the plan of care and understood without any language barrier. Every effort was made to ensure accuracy of picker operator. Any obvious errors or omissions should be clarified with the author of the document. Physical Exam Narrative: General: Alert and oriented, lying comfortably without any distress HEENT: Normocephalic, atraumatic, grossly unremarkable exam Cardio: normal rate rhythm, normal S1-S2 without any murmurs, rubs, or gallops and JVD normal Respiratory: normal vascular breathing on auscultation without any wheezes, stridor, rhonchi GI: Abdomen soft, nontender, nondistended, normoactive bowel sounds present all 4 quadrants, Neuro: intact cranial nerves motor and sensory and cerebellar/coordination function without any focal neurological deficit Behavior: Appropriate and cooperative Extremities: Adequate palpable pulses, no edema or cyanosis observed Skin: grossly unremarkable exam TS Data Studies Completed and Pending Pending at discharge Category Date Time Status Blood Culture Stat Lab 06/03/25 12:01 Results CBC Auto Diff [Complete Blood Count w/Auto] AM LABS Lab 06/05/25 04:00 Ordered CBC Auto Diff [Complete Blood Count w/Auto] Stat Lab 06/04/25 19:47 Ordered CMP [Comprehensive Metabolic Panel] AM LABS Lab 06/05/25 04:00 Ordered OVA and Parasites, Conc and PE Routine Lab 06/03/25 04:31 Received Salmonella / Shigella / Campy Routine Lab 06/03/25 04:31 Received Pathology: Surgical [PTH] Routine Pth 06/04/25 07:31 Received Completed Studies During Hospitalization Category Date Time Status CT angio abdomen pelvis [id number] Stat Cat Scan 06/03/25 04:37 Completed Laboratory Last Values WBC 11.24 10^3/uL (3.29-11.43) 06/03/25 19:08 RBC 3.50 10^6/uL (3.85-5.65) L 06/03/25 19:08 Hgb 9.60 g/dL (11.27-16.99) L 06/03/25 19:08 Hct 30.2 % (36-47) L 06/03/25 19:08 MCV 86.3 fl (85-98) 06/03/25 19:08 MCH 27.4 pg (27-33) 06/03/25 19:08 MCHC 31.8 g/dL (30-55) 06/03/25 19:08 RDW 12.8 % (12.1-15.1) 06/03/25 19:08 Plt Count 232 10^3/cmm (157-399) 06/03/25 19:08 MPV 10.5 fL (7.4-10.4) H 06/03/25 19:08 Neut % (Auto) 60.7 % 06/03/25 19:08 Lymph % (Auto) 27.8 % 06/03/25 19:08 [place] % (Auto) 7.8 % 06/03/25 19:08 Eos % (Auto) 2.8 % 06/03/25 19:08 Baso % (Auto) 0.5 % 06/03/25 19:08 Neut # (Auto) 6.81 10^3/uL (1.8-7.7) 06/03/25 19:08 Lymph # (Auto) 3.1 10^3/uL (0.8-4.8) 06/03/25 19:08 [place] # (Auto) 0.9 10^3/uL (0.2-0.9) 06/03/25 19:08 Eos # (Auto) 0.3 10^3/uL (0.0-0.8) 06/03/25 19:08 Baso # (Auto) 0.1 10^3/uL (0.0-0.1) 06/03/25 19:08 Nucleated RBC % (auto) 0 % 06/03/25 19:08 Nucleated RBCs # 0.0 /100WBC 06/03/25 19:08 PT 12.70 SECONDS (12.1-14.9) 06/03/25 04:18 INR 0.89 (0.8-1.2) 06/03/25 04:18 APTT 28.6 SECONDS (23.9-36.7) 06/03/25 04:18 Sodium 137 mmol/L (136-145) 06/04/25 03:49 Potassium 3.6 mmol/L (3.5-5.1) 06/04/25 03:49 Chloride 104 mmol/L (98-107) 06/04/25 03:49 Carbon Dioxide 23 mmol/L (22-29) 06/04/25 03:49 Anion Gap 13.6 (5-19) 06/04/25 03:49 BUN 4 mg/dL (6-20) L 06/04/25 03:49 Creatinine 0.8 mg/dL (0.5-0.9) 06/04/25 03:49 GFR Calculation 79.4 mL/min (90-130) L 06/04/25 03:49 Glucose 113 mg/dL (65-115) 06/04/25 03:49 Calculated Osmolality 282 mOsm/kg (285-295) L 06/04/25 03:49 Lactic Acid 1.1 mmol/L (0.5-2.2) 06/03/25 04:18 Calcium 8.6 mg/dL (8.5-10.5) 06/04/25 03:49 Phosphorus 2.9 mg/dL (2.5-4.5) 06/03/25 04:18 Magnesium 1.9 mg/dL (1.7-2.3) 06/03/25 12:01 Total Bilirubin 0.3 mg/dL (0.15-1.2) 06/04/25 03:49 AST 15 U/L (0-32) 06/04/25 03:49 ALT 13 U/L (0-33) 06/04/25 03:49 Alkaline Phosphatase 59 U/L (35-105) 06/04/25 03:49 Troponin T Baseline < 6 ng/L (0-10) 06/03/25 04:18 Troponin T 60 Minute < 6.0 ng/L (0-10) 06/03/25 05:40 Delta Troponin T 0 ABS# (0-10) 06/03/25 05:40 C-React Prot High Sens 0.230 mg/dL (0.0-0.3) 06/03/25 04:18 Total Protein 5.7 g/dL (6.6-8.7) L 06/04/25 03:49 Albumin 3.7 g/dL (3.5-5.2) 06/04/25 03:49 Globulin 2.0 g/dL (1.3-4.6) 06/04/25 03:49 Lipase 38 U/L (13-60) 06/03/25 04:18 HCG, Qual Negative (Negative) 06/03/25 04:18 C. difficile (PCR) Negative (Negative) 06/03/25 04:31 Blood Type A Positive 06/03/25 04:18 Rho(D) Type Rh positive 06/03/25 04:18 Antibody Screen Negative 06/03/25 04:18 Radiology Impressions Abdomen/Pelvis CTA 06/03/25 04:37 IMPRESSION: 1. No evidence of active bleeding within the gastrointestinal tract. A tagged red blood cell scan could be considered for further evaluation if warranted. 2. No acute findings in the abdomen/pelvis. 3. Moderate colonic stool can be seen with constipation. 4. Mild hepatomegaly. 5. 3.3 cm left adnexal cyst likely represents a dominant follicle. Recent Clincial Data Last Vital Signs Temp 98.4 F 06/04/25 00:45 Pulse 88 06/04/25 18:04 Resp 17 06/04/25 18:04 BP 127/67 06/04/25 18:04 Pulse Ox 99 06/04/25 18:04 O2 Del Method Room Air 06/04/25 18:04 Vital Signs Pulse Resp BP Pulse Ox O2 Del Method 06/04/25 18:04 88 17 127/67 99 Room Air 06/04/25 17:49 92 17 93/73 99 Room Air 06/04/25 17:32 85 21 H 93/73 100 Room Air 06/04/25 15:35 86 24 H 98/62 96 Room Air 06/04/25 13:47 88 06/04/25 12:03 84 17 118/69 97 Room Air 06/04/25 11:45 87 32 H 115/77 98 Room Air 06/04/25 11:30 86 16 98 06/04/25 11:15 19 H 99 06/04/25 09:30 92 26 H 115/77 100 Room Air 06/04/25 09:00 117/96 06/04/25 08:31 100 Intake & Output/Weight 06/02/25 06/03/25 06/04/25 06/05/25 06:59 06:59 06:59 06:59 Intake Total 1000 / 1000 3080 / 3080 1460 / 1460 Balance 1000 / 1000 3080 / 3080 1460 / 1460 Weight 90.718 kg 94 kg Vitals Last Vital Signs Temp 98.4 F 06/04/25 00:45 Pulse 88 06/04/25 18:04 Resp 17 06/04/25 18:04 BP 127/67 06/04/25 18:04 Pulse Ox 99 06/04/25 18:04 O2 Del Method Room Air 06/04/25 18:04 TS Medications Medications Acetaminophen (Acetaminophen 325 Mg Tablet) 650 mg PO Q6H PRN PRN Reason: MILD PAIN Last Admin: 06/03/25 21:33 Dose: 650 mg Al Hydrox/Mg Hydrox/Simethicone (Hsca-Sis-Jyaeizzby-Sadi 30 Ml Udc) 15 ml PO Q8H [facility] Last Admin: 06/04/25 13:55 Dose: 15 ml Al Hydrox/Mg Hydrox/Simethicone (Pdfe-Aqq-Akvodolun-Sadi 30 Ml Udc) 15 ml PO Q4H PRN PRN Reason: INDIGESTION Bupropion HCl (Bupropion Xl (24 Hr) 300 Mg Tablet) 300 mg PO DAILY [facility] Last Admin: 06/04/25 04:01 Dose: 300 mg Buspirone HCl (Buspirone 5 Mg Tablet) 5 mg PO TID PRN PRN Reason: ANXIETY Last Admin: 06/04/25 08:35 Dose: 5 mg Lactated Ringer's (Lactated Ringers) 1,000 mls @ 150 mls/hr IV .Q6H40M [facility] Last Admin: 06/04/25 15:37 Dose: Not Given Sodium Chloride (Sodium Chloride 0.9%) 1,000 mls @ 15 mls/hr IV .Q24H PRN PRN Reason: COLONOSCOPY FLUIDS Stop: 06/05/25 06:53 Lidocaine HCl (Lidocaine 1% Inj 20 Ml) 0.1 ml INTRADERMA PRN PRN PRN Reason: anesthetic prior to IV start Stop: 06/05/25 06:53 Lidocaine HCl (Lidocaine 2% Viscous 15 Ml Udc) 1 ml TOPICAL PRN PRN PRN Reason: Anesthetic prior to IV start Midazolam HCl (Midazolam 1 Mg/Ml Inj 2 Ml) 2 mg IVP Q5M PRN PRN Reason: Preop Anxiety Morphine Sulfate (Morphine 4 Mg/Ml Sdv 1 Ml) 4 mg IVP Q4H PRN PRN Reason: SEVERE PAIN Morphine Sulfate (Morphine 4 Mg/Ml Sdv 1 Ml) 0 mg IVP Q5M PRN PRN Reason: Breakthrough Pain PACU PhaseII Non-Formulary Medication (Ixekizumab [Taltz Autoinjector]) 80 mg SUBCUT Q28D [facility] Last Admin: 06/04/25 13:53 Dose: 80 mg Ondansetron HCl (Ondansetron 2 Mg/Ml Sdv 2 Ml) 4 mg IVP Q6H PRN PRN Reason: NAUSEA AND VOMITING Last Admin: 06/04/25 04:02 Dose: 4 mg Ondansetron HCl (Ondansetron 2 Mg/Ml Sdv 2 Ml) 4 mg IVP Q15M PRN PRN Reason: Nausea/Vomiting PACU PHASE II Pantoprazole Sodium (Pantoprazole 40 Mg Sdv) 40 mg IVP DAILY [facility] Sodium Chloride (Sodium Chloride 0.9 % (Flush) Syringe 10 Ml) 2 ml IV DIRECTED PRN PRN Reason: EGD MEDICATION FLUSH Stop: 06/05/25 06:53 Sucralfate (Sucralfate 1 Gm Tablet) 1 gm PO Q4H [facility] Last Admin: 06/04/25 17:22 Dose: 1 gm Discontinued Medications Al Hydrox/Mg Hydrox/Simethicone (Vksn-Ipt-Pdcpkohlq-Sadi 30 Ml Udc) 15 ml PO Q8H PRN PRN Reason: INDIGESTION Bisacodyl (Bisacodyl 5 Mg Tablet) 40 mg PO ONCE ONE Stop: 06/03/25 22:01 Last Admin: 06/03/25 21:42 Dose: 40 mg Bisacodyl (Bisacodyl 5 Mg Tablet) 40 mg PO ONCE ONE Stop: 06/03/25 08:01 Last Admin: 06/03/25 11:51 Dose: Not Given Bisacodyl (Bisacodyl 5 Mg Tablet) 40 mg PO ONCE ONE Stop: 06/03/25 12:01 Last Admin: 06/03/25 11:49 Dose: 40 mg Epinephrine HCl (Epinephrine 1 Mg/Ml Inj) 1 mg XX ONCE ONE Stop: 06/04/25 07:35 Last Admin: 06/04/25 13:48 Dose: 1 mg Epinephrine HCl (Epinephrine 1 Mg/Ml Inj) Confirm Administered Dose 1 mg .ROUTE .STK-MED ONE Stop: 06/04/25 12:10 Sodium Chloride (Sodium Chloride 0.9%) 1,000 mls @ 999 mls/hr IV .Q1H1M ONE Stop: 06/03/25 05:37 Last Infusion: 06/03/25 06:50 Dose: Infused Potassium Chloride/Dextrose/Sod Cl (D5-Ns 0.45% + Kcl 20 Meq) 20 meq in 1,000 mls @ 100 mls/hr IV .Q10H [facility] Last Infusion: 06/03/25 21:32 Dose: Infused Lactated Ringer's (Lactated Ringers) 1,000 mls @ 150 mls/hr IV .Q6H40M [facility] Last Admin: 06/03/25 18:52 Dose: Not Given Metronidazole (Flagyl Iv) 500 mg in 100 mls @ 100 mls/hr IV Q8H [facility]; Protocol Last Admin: 06/04/25 13:56 Dose: 100 mls/hr Ciprofloxacin/Dextrose (Cipro) 400 mg in 200 mls @ 200 mls/hr IV Q12H [facility]; Protocol Last Admin: 06/04/25 13:56 Dose: 200 mls/hr Lactated Ringer's (Lactated Ringers) 1,000 mls @ 999 mls/hr IV .Q1H1M ONE Stop: 06/04/25 17:52 Last Admin: 06/04/25 17:22 Dose: 999 mls/hr Iohexol (Iohexol 350 Mg/Ml 500 Ml Btl (Per Ml)) 0 ml IV ONCE ONE Stop: 06/03/25 06:07 Last Admin: 06/03/25 06:07 Dose: 100 ml Ketamine HCl (Ketamine 100 Mg/Ml Inj 5 Ml) Confirm Administered Dose 500 mg .ROUTE .STK-MED ONE Stop: 06/04/25 06:48 Lidocaine HCl (Lidocaine 2% Inj 20 Ml) Confirm Administered Dose 20 ml .ROUTE .STK-MED ONE Stop: 06/04/25 06:50 Magnesium Citrate (Magnesium Citrate Btl 296 Ml) 296 ml PO 1200,2000 [facility] Stop: 06/03/25 20:01 Last Admin: 06/03/25 21:30 Dose: 296 ml Pantoprazole Sodium (Pantoprazole 40 Mg Sdv) 40 mg IVP ONCE ONE Stop: 06/03/25 04:38 Last Admin: 06/03/25 05:47 Dose: 40 mg Pantoprazole Sodium (Pantoprazole 40 Mg Sdv) 80 mg IVP ONCE ONE Stop: 06/03/25 07:20 Last Admin: 06/03/25 07:35 Dose: 80 mg Pantoprazole Sodium (Pantoprazole 40 Mg Sdv) 40 mg IVP Q12H [facility] Last Admin: 06/04/25 11:11 Dose: 40 mg Propofol (Propofol 10 Mg/Ml Sdv 20 Ml) Confirm Administered Dose 200 mg .ROUTE .STK-MED ONE Stop: 06/04/25 06:51 Propofol (Propofol 10 Mg/Ml Sdv 20 Ml) Confirm Administered Dose 200 mg .ROUTE .STK-MED ONE Stop: 06/04/25 07:16 Propofol (Propofol 10 Mg/Ml Sdv 20 Ml) Confirm Administered Dose 200 mg .ROUTE .STK-MED ONE Stop: 06/04/25 07:21 Allergies No Known Allergies Allergy (Verified 06/03/25 04:19) Home Medications bupropion HCl 300 mg 24 hr tablet, extended release 300 mg PO DAILY 06/03/25 [History Confirmed 06/03/25] buspirone 5 mg tablet 5 mg PO TID PRN Anxiety 06/03/25 [History Confirmed 06/03/25] ixekizumab 80 mg/mL subcutaneous auto-injector (Taltz Autoinjector) 80 mg SUBCUT .Q28D 06/03/25 [History Confirmed 06/03/25] omeprazole 20 mg capsule,delayed release 20 mg PO DAILY 06/03/25 [History Confirmed 06/03/25] Discharge Plan Discharge Patient Disposition: Xfer Other Condition: Stable Prescriptions: No Action buspirone 5 mg tablet 5 mg PO TID PRN (Reason: Anxiety) omeprazole 20 mg capsule,delayed release(DR/EC) 20 mg PO DAILY bupropion HCl 300 mg tablet extended release 24 hr 300 mg PO DAILY Taltz Autoinjector 80 mg/mL Auto-Injector 80 mg SUBCUT .Q28D Referrals: Steve Sanchez FNP [Nurse Practitioner, Family Practice] Siddiqui,REA Ordonez [Primary Care Provider, Nurse Practitioner] Discharge Diet: Advance as tolerated Discharge Activity: Resume usual activity Patient Instructions: GI Post Discharge Instructions w/ Anesthesia, Opioid Safety, Patient Portal & Angela Instructions Transfer Attestations Time Spent in Transfer Care: critical care time Critical Care Time (min): 35 Specific Discharge Activities: educating patient, educating and/or supporting family/caregiver, discussing with pcp/other providers, discussing with social work case manager/social workers/dc planners, documenting/other paperwork and evaluating patient/reviewing data Status at Transfer: Cognitive status at transfer: cognitively intact; Behavioral status at transfer: cooperative; Functional status at transfer: independent ambulation; Overall status at transfer: patient is progressing back to baseline Quality Metrics Clinical Quality Measures [ No reported AMI, CVA or VTE this stay] Coding Level of Care Code Critical Care >/= 30 minutes Diagnoses Lower GI bleed K92.2 Depression, unspecified depression type F32.A Depression Type: unspecified Gastroesophageal reflux disease without esophagitis K21.9 Esophagitis presence: without esophagitis
[2025-06-04 21:05] LABS: Hematocrit 22.9 % (36-47); Hemoglobin 7.40 g/dL (11.27-16.99); Mean Corpuscular HGB Conc 32.3 g/dL (30-55); Mean Corpuscular Hemoglobin 27.8 pg (27-33); Mean Corpuscular Volume 86.1 fl (85-98); Nucleated Red Blood Cells % 0 %; Platelet Count 185 10^3/cmm (157-399); Red Blood Count 2.66 10^6/uL (3.85-5.65); White Blood Count 7.97 10^3/uL (3.29-11.43)
--- NOTE | 2025-06-04 21:47 | PC.NURSE ---
Bed obtained from Myron stinson. Report called and given to Kb Anderson. Report called to milad pulido transfer, awaiting ETA.
[2025-06-05] VITALS (11 sets, daily range): BP systolic 98–123; BP diastolic 42–84; PULSE 67–85; RESP 18–26; TEMP 36.4–37.1; O2SAT 93–97
--- NOTE | 2025-06-05 00:25 | PC.NURSE ---
1 unit packed RBC started at 2325.
[2025-06-05 04:42] LABS: Hematocrit 28.1 % (36-47); Hemoglobin 9.10 g/dL (11.27-16.99); Mean Corpuscular HGB Conc 32.4 g/dL (30-55); Mean Corpuscular Hemoglobin 28.2 pg (27-33); Mean Corpuscular Volume 87.0 fl (85-98); Nucleated Red Blood Cells % 0 %; Platelet Count 201 10^3/cmm (157-399); Red Blood Count 3.23 10^6/uL (3.85-5.65); White Blood Count 7.61 10^3/uL (3.29-11.43)
[2025-06-05 05:01] LABS: Alanine Aminotransferase 11 U/L (0-33); Albumin Level 3.3 g/dL (3.5-5.2); Alkaline Phosphatase 54 U/L (35-105); Anion Gap 11.6 (5-19); Aspartate Amino Transferase 13 U/L (0-32); Blood Urea Nitrogen 3 mg/dL (6-20); Calcium 8.3 mg/dL (8.5-10.5); Carbon Dioxide 24 mmol/L (22-29); Chloride 108 mmol/L (98-107); Globulin 1.8 g/dL (1.3-4.6); Glucose 88 mg/dL (65-115); Osmolality Calculated 286 mOsm/kg (285-295); Potassium 3.6 mmol/L (3.5-5.1); Sodium 140 mmol/L (136-145); Total Protein 5.1 g/dL (6.6-8.7)
[2025-06-05] MEDS: alum-mag-hydroxide-sime 30 mL UDC 15 ML PO (05:31)
[2025-06-05] MEDS: pantoprazole 40 mg SDV IVP (05:31)
[2025-06-05] MEDS: ondansetron 2 mg/ML SDV 2 mL 4 MG IVP (05:46)
[2025-06-09 10:34] LABS: Mismatch Repari Proteins-IHC See Report
--- NOTE | 2025-06-10 12:11 | PM.MISC ---
Miscellaneous Note Purpose of Documentation: Callback for the pathology report results from the biopsy taken from the rectal mass: Note: Patient was transferred while inpatient to [facility] after suspected rectal mass to be malignant. After discussion with the patient she was transferred to [facility]. The pathology report showed adenocarcinoma. Patient was called multiple times however could not reach to the patient. She is already transferred for the suspected malignancy of rectal mass to [facility] for further continued of care workup and management.
== END 2025-06-05 08:03 | disposition short-term general hospital (02) | DRG 376 ==
LOC: ER 06:23 → ICU 09:54
PROVIDERS: Student in an Organized Health Care Education/Training Program; Admitting Provider Internal Medicine; Emergency Provider Family Medicine; PCP Nurse Practitioner Family; Visit Provider Student in an Organized Health Care Education/Training Program
PROC: 0DJD8ZZ Inspection of Lower Intestinal Tract, Via Natural or Artificial Opening Endoscopic (ICD-10-PCS; CPT 45378; principal; 2025-06-04 07:00)
DX: C20 Malignant neoplasm of rectum (principal); F32.A Depression, unspecified; K21.9 Gastro-esophageal reflux disease without esophagitis; R00.0 Tachycardia, unspecified
CPT/HCPCS: 36415; 36430; 45380; 45381; 74174; 80053; 83605; 83690; 83735; 84100; 84484; 84703; 85025; 85610; 85730; 86141; 86850; 86900; 86920; 87040; 87045; 87177; 87209; 87427; 87449; 87493; 88305; 88341; 88342; 93005; 96361; 96372; 96374; 99285; J0169; J0744; J2405; J2470; J2704; J3490; J7030; J7120; J9999; P9016